=== PATIENT | female | born 1955 | race Caucasian/White ===

== ENCOUNTER → 2017-10-05 | Outpatient (CLI) | payer MEDICARE, OTHER ==
[~2017-10-05] MED LIST: LIDOCAINE 2%, 20ML ONE
== END ==
LOC: RAD 07:12
PROVIDERS: ATTEND Family Medicine
DX: J90 Pleural effusion, not elsewhere classified (principal); F32.89 Other specified depressive episodes; Z98.51 Tubal ligation status; Z98.890 Other specified postprocedural states
CPT/HCPCS: 32555; J3490

== ENCOUNTER 2017-10-16 18:13 | Inpatient (IN) | payer MEDICARE, OTHER ==
[~2017-10-16] VITALS: Ht 167.6 cm; Wt 84.6 kg
[2017-10-16] MEDS ORDERED: SODIUM CHLORIDE FLUSH 10ML SYR IVF ONE ×2 (19:00→19:30)
[2017-10-16] MEDS ORDERED: AMLO5TAB2 PO (19:19)
[2017-10-16] MEDS ORDERED: VILA20TA PO (19:19)
[2017-10-16] MEDS ORDERED: LOSA25TA5 PO (19:20)
[2017-10-16] MEDS ORDERED: HYDR-3237 PO (19:21)
[2017-10-16 19:30] LABS: BASOPHILS # (AUTO) 0.01 x10^3/uL (0-0.1); BASOPHILS % (AUTO) 0 % (0-1); EOSINOPHILS # (AUTO) 0.27 x10^3/uL (0-0.4); EOSINOPHILS % (AUTO) 4 % (1-7); LYMPHOCYTES # (AUTO) 0.68 x10^3/uL (1-3.4); LYMPHOCYTES % (AUTO) 10 % (22-44); MD NO; MEAN CORPUSCULAR HGB CONC 33.1 g/dL (32.4-35.8); MEAN CORPUSCULAR VOLUME 96.6 fL (80-100); MEAN PLATELET VOLUME 7.4 fL (7.4-10.4); MONOCYTES # (AUTO) 0.38 x10^3/uL (0.2-0.8); MONOCYTES % (AUTO) 6 % (2-9); NEUTROPHILS # (AUTO) 5.46 x10^3/uL (1.8-6.8); NEUTROPHILS % (AUTO) 80 % (42-75); PLATELET COUNT 313 x10^3/uL (130-400); RED BLOOD COUNT 4.01 x10^6/uL (3.82-5.3); RED CELL DISTRIBUTION WIDTH 13.4 % (9.6-15.2)
[2017-10-16 19:34] LABS: ALBUMIN 3.2 g/dL (3.4-5.0); ANION GAP 10 mmol/L (5-15); CALCIUM 9.9 mg/dL (8.5-10.1); CHLORIDE 108 mmol/L (98-107); CREATININE 1.43 mg/dL (0.55-1.02)
[2017-10-16 19:35] LABS: INTERNATIONAL NORMALIZED RATIO 0.97 (0.93-1.1)
[2017-10-16] MEDS ORDERED: LIDOCAINE 2%, 20ML ONE (19:49)
[2017-10-16] MEDS ORDERED: FENTANYL PF 100 MCG/2ML ONE (19:55)
[2017-10-16] MEDS ORDERED: HYDROcodone/APAP 5/325 TABLET ONE (21:09)
[2017-10-16] MEDS ORDERED: HYDROcodone/APAP 5/325 TABLET PO ONE (21:30)
[2017-10-16] MEDS: HEPARIN 5,000 UNITS/ML, 1ML SQ SCH (22:00)
[2017-10-16] MEDS ORDERED: ACETAMINOPHEN 325 MG TABLET PO PRN (22:00)
[2017-10-16] MEDS ORDERED: HYDROcodone/APAP 5/325 TABLET PO PRN ×2 (22:00→23:30)
[2017-10-16] MEDS ORDERED: ONDANSETRON 2MG/ML, 2ML IVPush PRN (22:00)
[2017-10-16] MEDS ORDERED: BISACODYL 10 MG SUPP PR PRN (22:00)
[2017-10-16] MEDS ORDERED: HYDROcodone/APAP 5/325 TABLET PO SCH (22:00)
[2017-10-16] MEDS ORDERED: POLYETHYLENE GLYCOL 17 GM PACKET PO PRN (22:00)
[2017-10-16 23:23] VITALS: BP 122/75
[2017-10-16] MEDS: SODIUM CHLORIDE FLUSH 10ML SYR IVF SCH (23:23)
[2017-10-17] MEDS: MORPHINE SULFATE 4 MG/ML, 1ML IVPush PRN ×4 (00:08→14:36)
[2017-10-17 02:24] VITALS: BP 125/82
[2017-10-17] MEDS: HEPARIN 5,000 UNITS/ML, 1ML SQ SCH ×3 (05:30→22:00)
[2017-10-17] MEDS: HYDROcodone/APAP 5/325 TABLET PO PRN ×3 (05:36→21:02)
[2017-10-17 06:12] LABS: BASOPHILS # (AUTO) 0.02 x10^3/uL (0-0.1); BASOPHILS % (AUTO) 0 % (0-1); EOSINOPHILS # (AUTO) 0.21 x10^3/uL (0-0.4); EOSINOPHILS % (AUTO) 3 % (1-7); LYMPHOCYTES # (AUTO) 0.61 x10^3/uL (1-3.4); LYMPHOCYTES % (AUTO) 10 % (22-44); MD NO; MEAN CORPUSCULAR HEMOGLOBIN 31.6 pg (27.0-34.8); MEAN CORPUSCULAR HGB CONC 32.6 g/dL (32.4-35.8); MEAN CORPUSCULAR VOLUME 96.8 fL (80-100); MEAN PLATELET VOLUME 7.1 fL (7.4-10.4); MONOCYTES # (AUTO) 0.43 x10^3/uL (0.2-0.8); MONOCYTES % (AUTO) 7 % (2-9); NEUTROPHILS # (AUTO) 4.92 x10^3/uL (1.8-6.8); NEUTROPHILS % (AUTO) 80 % (42-75); PLATELET COUNT 270 x10^3/uL (130-400); RED BLOOD COUNT 3.68 x10^6/uL (3.82-5.3); RED CELL DISTRIBUTION WIDTH 13.2 % (9.6-15.2)
[2017-10-17 06:25] LABS: ALBUMIN 2.7 g/dL (3.4-5.0); ANION GAP 7 mmol/L (5-15); CALCIUM 9.4 mg/dL (8.5-10.1); CHLORIDE 110 mmol/L (98-107)
[2017-10-17 06:28] LABS: ALANINE AMINOTRANSFERASE 13 U/L (12-78); ALKALINE PHOSPHATASE 59 U/L (45-117); BILIRUBIN,TOTAL 0.5 mg/dL (0.2-1.0); CREATININE 1.34 mg/dL (0.55-1.02); TOTAL PROTEIN 6.9 g/dL (6.4-8.2)
[2017-10-17 07:15] VITALS: BP 122/80
[2017-10-17] MEDS: LOSARTAN 25MG TABLET PO SCH (09:18)
[2017-10-17] MEDS: SODIUM CHLORIDE FLUSH 10ML SYR IVF SCH ×2 (09:18→21:03)
[2017-10-17] MEDS: SENNA/DOCUSATE TABLET PO SCH (09:19)
[2017-10-17] MEDS: AMLODIPINE 5 MG TABLET PO SCH (09:19)
[2017-10-17 13:34] VITALS: BP 111/70
[2017-10-17] MEDS ORDERED: LIDODERM 5% PATCH TD SCH (18:00)
[2017-10-17] MEDS ORDERED: PHARMACY MAY ADJ FOR RENAL FX MC PRN (18:00)
[2017-10-17] MEDS: GABAPENTIN 100 MG CAPSULE PO SCH ×2 (18:16→21:02)
[2017-10-17 19:14] VITALS: BP 98/67
[2017-10-18 01:54] VITALS: BP 112/73
[2017-10-18] MEDS: HEPARIN 5,000 UNITS/ML, 1ML SQ SCH (05:42)
[2017-10-18] MEDS: GABAPENTIN 100 MG CAPSULE PO SCH ×2 (05:57→11:37)
[2017-10-18 06:01] LABS: BASOPHILS # (AUTO) 0.03 x10^3/uL (0-0.1); BASOPHILS % (AUTO) 1 % (0-1); EOSINOPHILS # (AUTO) 0.23 x10^3/uL (0-0.4); EOSINOPHILS % (AUTO) 5 % (1-7); LYMPHOCYTES # (AUTO) 0.77 x10^3/uL (1-3.4); LYMPHOCYTES % (AUTO) 16 % (22-44); MD NO; MEAN CORPUSCULAR HEMOGLOBIN 31.6 pg (27.0-34.8); MEAN CORPUSCULAR HGB CONC 32.8 g/dL (32.4-35.8); MEAN CORPUSCULAR VOLUME 96.3 fL (80-100); MEAN PLATELET VOLUME 7.3 fL (7.4-10.4); MONOCYTES # (AUTO) 0.53 x10^3/uL (0.2-0.8); MONOCYTES % (AUTO) 11 % (2-9); NEUTROPHILS # (AUTO) 3.24 x10^3/uL (1.8-6.8); NEUTROPHILS % (AUTO) 68 % (42-75); PLATELET COUNT 262 x10^3/uL (130-400); RED BLOOD COUNT 3.73 x10^6/uL (3.82-5.3); RED CELL DISTRIBUTION WIDTH 13.5 % (9.6-15.2)
[2017-10-18 07:07] LABS: ANION GAP 10 mmol/L (5-15); CALCIUM 8.9 mg/dL (8.5-10.1); CHLORIDE 107 mmol/L (98-107)
[2017-10-18 07:19] VITALS: BP 116/73
[2017-10-18] MEDS: SODIUM CHLORIDE FLUSH 10ML SYR IVF SCH (08:58)
[2017-10-18] MEDS: SENNA/DOCUSATE TABLET PO SCH (08:58)
[2017-10-18] MEDS: LOSARTAN 25MG TABLET PO SCH (08:58)
[2017-10-18] MEDS: AMLODIPINE 5 MG TABLET PO SCH (08:58)
[2017-10-18] MEDS ORDERED: METHOCARBAMOL 500 MG TABLET PO PRN (10:00)
[2017-10-18 10:52] LABS: THYROID STIMULATING HORMONE 3.32 mIU/L (0.358-3.740)
[2017-10-18] MEDS ORDERED: GABA-826 PO (11:28)
[2017-10-18] MEDS ORDERED: MAGNESIUM OXIDE 400 MG TABLET PO SCH (12:00)
== END 2017-10-18 12:40 | disposition home or self-care (01) | DRG 186 ==
LOC: ED 21:32 → EDIP 21:40 → 4WST 22:19 → DCLOUNGE 10-18 12:25
PROVIDERS: ADMIT Internal Medicine; ATTEND Internal Medicine
PROC: 0W9B30Z Drainage of Left Pleural Cavity with Drainage Device, Percutaneous Approach (ICD-10-PCS; principal; 2017-10-16)
DX: J94.8 Other specified pleural conditions (principal); J96.01 Acute respiratory failure with hypoxia; N17.0 Acute kidney failure with tubular necrosis; E44.0 Moderate protein-calorie malnutrition; J98.11 Atelectasis; R18.8 Other ascites; J90 Pleural effusion, not elsewhere classified; I89.0 Lymphedema, not elsewhere classified; I49.3 Ventricular premature depolarization; Z88.0 Allergy status to penicillin; Z00.6 Encounter for examination for normal comparison and control in clinical research program; Z80.1 Family history of malignant neoplasm of trachea, bronchus and lung; Z82.49 Family history of ischemic heart disease and other diseases of the circulatory system; Z85.43 Personal history of malignant neoplasm of ovary; Z90.710 Acquired absence of both cervix and uterus; Z68.30 Body mass index [BMI] 30.0-30.9, adult; I12.9 Hypertensive chronic kidney disease with stage 1 through stage 4 chronic kidney disease, or unspecified chronic kidney disease; N18.9 Chronic kidney disease, unspecified
CPT/HCPCS: 32551; 32557; 36415; 71045; 80048; 80053; 82040; 83735; 84443; 85025; 85610; 85730; 93005; 99291; J3010; J3490; C1729; C1769

== ENCOUNTER → 2017-10-16 | Outpatient (CLI) | payer MEDICARE, OTHER ==
[~2017-10-16] MED LIST changes: +AMLO5TAB2 PO; +GABA-826 PO; +HYDR-3237 PO; -LIDOCAINE 2%, 20ML ONE; +LOSA25TA5 PO; +VILA20TA PO
== END | disposition home or self-care (01) ==
LOC: RAD 15:37
PROVIDERS: ATTEND Family Medicine
DX: J90 Pleural effusion, not elsewhere classified (principal); J94.8 Other specified pleural conditions
CPT/HCPCS: 71046

== ENCOUNTER → 2017-10-24 | Outpatient (CLI) | payer MEDICARE, OTHER ==
[~2017-10-24] MED LIST changes: +GABA300C10 PO; +TAMS-11 PO
== END | disposition home or self-care (01) ==
LOC: RAD 15:06
PROVIDERS: ATTEND Family Medicine
DX: J90 Pleural effusion, not elsewhere classified (principal); J98.11 Atelectasis; J93.12 Secondary spontaneous pneumothorax
CPT/HCPCS: 71046

== ENCOUNTER 2017-10-25 12:21 | Observation (INO) | payer MEDICARE, OTHER ==
[~2017-10-25] VITALS: Ht 167.6 cm; Wt 85.0 kg
[~2017-10-25 12:21] MED LIST changes: -GABA300C10 PO; -TAMS-11 PO
[2017-10-25] MEDS ORDERED: LACTATED RINGERS 1,000 ML IV SCH (12:56)
[2017-10-25] MEDS ORDERED: GABA300C10 PO (13:22)
[2017-10-25 14:00] VITALS: BP 112/75
[2017-10-25] MEDS ORDERED: MIDAZOLAM 1 MG/ML, 2ML ONE (14:02)
[2017-10-25 14:03] LABS: MICROSCOPIC NOT IND
[2017-10-25] MEDS ORDERED: FENTANYL PF 100 MCG/2ML ONE (14:03)
[2017-10-25] MEDS ORDERED: PROPOFOL 10 MG/ML, 20ML ONE (14:03)
[2017-10-25] MEDS ORDERED: CEFAZOLIN 1,000 MG ONE ×2 (14:06→14:10)
[2017-10-25 14:08] LABS: CULTURE INDICATED? NO
[2017-10-25] MEDS ORDERED: DEXAMETHASONE 4 MG/ML, 1ML ONE (14:09)
[2017-10-25] MEDS ORDERED: KETOROLAC 30 MG/1 ML ONE (14:10)
[2017-10-25] MEDS ORDERED: ONDANSETRON 2MG/ML, 2ML ONE (14:10)
[2017-10-25] MEDS ORDERED: ACETAMINOPHEN 325 MG TABLET PO PRN (14:30)
[2017-10-25] MEDS ORDERED: OXYcodone 5 MG/5 ML ORAL.SOL UDC PO PRN (14:30)
[2017-10-25] MEDS ORDERED: hydrALAzine 20 MG/ML, 1ML IV PRN (14:30)
[2017-10-25] MEDS ORDERED: FENTANYL PF 100 MCG/2ML IV PRN (14:30)
[2017-10-25] MEDS ORDERED: LABETALOL 5MG/ML, 20ML IV PRN (14:30)
[2017-10-25] MEDS ORDERED: PROMETHAZINE 12.5 MG SUPP PR PRN (14:30)
[2017-10-25] MEDS ORDERED: MEPERIDINE/PF 25MG/0.5ML IVPush PRN (14:30)
[2017-10-25] MEDS ORDERED: MORPHINE SULFATE 4 MG/ML, 1ML IVPush PRN (14:30)
[2017-10-25] MEDS ORDERED: ONDANSETRON ODT 8 MG PO PRN (14:30)
[2017-10-25] MEDS ORDERED: HYDROmorphone 1 MG/ML, 1ML IV PRN (14:30)
[2017-10-25] MEDS ORDERED: OMNIPAQUE 350 MG/ML, 50 ML BOTTLE IV ONE ×2 (14:33→16:10)
[2017-10-25 19:15] VITALS: BP 113/67
[2017-10-25] MEDS ORDERED: HYDROcodone/APAP 5/325 TABLET PO PRN (21:00)
[2017-10-25] MEDS ORDERED: TAMSULOSIN 0.4 MG CAP.ER.24H PO PRN (21:00)
[2017-10-25] MEDS: GABAPENTIN 300 MG CAPSULE PO SCH (21:20)
[2017-10-26 02:33] VITALS: BP 111/65
[2017-10-26 08:03] VITALS: BP 141/77
[2017-10-26] MEDS: GABAPENTIN 300 MG CAPSULE PO SCH (08:15)
[2017-10-26] MEDS ORDERED: VILAZODONE HYDROCHLORIDE 20 MG HOMEMEDPO SCH (09:00)
[2017-10-26] MEDS ORDERED: LOSARTAN 25MG TABLET PO SCH (09:00)
[2017-10-26] MEDS ORDERED: AMLODIPINE 5 MG TABLET PO SCH (09:00)
[2017-10-26] MEDS ORDERED: TAMS-11 PO (09:35)
== END 2017-10-26 09:45 | disposition home or self-care (01) ==
LOC: OUT 12:21 → 4NOR 19:01 → OUT 21:01 → DCLOUNGE 10-26 09:37
PROVIDERS: ADMIT Urology; ATTEND Urology
DX: N13.30 Unspecified hydronephrosis (principal); C56.9 Malignant neoplasm of unspecified ovary; F41.9 Anxiety disorder, unspecified; F32.9 Major depressive disorder, single episode, unspecified; G62.9 Polyneuropathy, unspecified
CPT/HCPCS: 52005; 74420; 81003; C1758; C1769; C2617; G0378; J0690; J1100; J1885; J2250; J2405; J2704; J3010; J7120; Q9967

== ENCOUNTER 2017-11-07 09:16 | Emergency (ER) | payer MEDICARE, OTHER ==
[~2017-11-07] VITALS: Ht 167.6 cm; Wt 82.9 kg
[~2017-11-07 09:16] MED LIST changes: +GABA300C10 PO; +TAMS-11 PO
[2017-11-07] MEDS ORDERED: LIDOCAINE-MPF 2% ,5ML ONE (11:23)
[2017-11-07 12:27] VITALS: BP 113/70
== END 2017-11-07 13:03 | disposition home or self-care (01) ==
LOC: ED 10:20
DX: J91.0 Malignant pleural effusion (principal); I10 Essential (primary) hypertension
CPT/HCPCS: 32555; 71045; 71046; 93005; 99285; J3490; 99284

== ENCOUNTER → 2017-11-09 | Outpatient (CLI) | payer MEDICARE, OTHER ==
[~2017-11-09] MED LIST changes: +LIDOCAINE-MPF 2% ,5ML ONE
== END | disposition home or self-care (01) ==
LOC: RAD 09:33
PROVIDERS: ATTEND Family Medicine
DX: R18.8 Other ascites (principal); J91.8 Pleural effusion in other conditions classified elsewhere
CPT/HCPCS: 32555; 49083; J3490

== ENCOUNTER → 2017-11-27 | Outpatient (CLI) | payer MEDICARE, OTHER ==
[~2017-11-27] MED LIST changes: +LIDOCAINE-MPF 1%, 2ML ONE; -LIDOCAINE-MPF 2% ,5ML ONE
== END | disposition home or self-care (01) ==
LOC: RAD 13:36
PROVIDERS: ATTEND Family Medicine
DX: J93.9 Pneumothorax, unspecified (principal); J90 Pleural effusion, not elsewhere classified; J94.0 Chylous effusion; R18.8 Other ascites
CPT/HCPCS: 32555; 49083; 71045; J3490

== ENCOUNTER → 2017-12-21 | Outpatient (CLI) | payer MEDICARE, OTHER ==
[~2017-12-21] MED LIST changes: -LIDOCAINE-MPF 1%, 2ML ONE; +LIDOCAINE-MPF 2%, 2ML ONE
== END | disposition home or self-care (01) ==
LOC: RAD 11:40
PROVIDERS: ATTEND Family Medicine
DX: R18.8 Other ascites (principal); J90 Pleural effusion, not elsewhere classified; R06.02 Shortness of breath; R10.9 Unspecified abdominal pain; R14.0 Abdominal distension (gaseous)
CPT/HCPCS: 32555; 49083; J3490

== ENCOUNTER 2018-04-14 12:46 | Emergency (ER) | payer MEDICARE, OTHER ==
[~2018-04-14 12:46] MED LIST changes: +AMLO-150 PO; -AMLO5TAB2 PO; -LIDOCAINE-MPF 2%, 2ML ONE; -LOSA25TA5 PO; +LOSA25TA6 PO
[2018-04-14] MEDS ORDERED: ONDA4TAB10 PO (13:36)
[2018-04-14] MEDS ORDERED: LORA-445 PO (13:36)
[2018-04-14] MEDS ORDERED: PROC5TAB40 PO (13:37)
[2018-04-14 13:52] LABS: ANION GAP 9 mmol/L (5-15); CALCIUM 9.1 mg/dL (8.5-10.1); CHLORIDE 107 mmol/L (98-107)
[2018-04-14 13:53] LABS: INTERNATIONAL NORMALIZED RATIO 0.97 (0.93-1.1); PROTHROMBIN TIME 10.3 Seconds (9.6-11.5)
[2018-04-14] MEDS ORDERED: LIDOCAINE 1%, 10ML ONE (14:20)
[2018-04-14 14:30] LABS: MD YES; MEAN CORPUSCULAR HEMOGLOBIN 31.7 pg (27.0-34.8); MEAN CORPUSCULAR HGB CONC 33.6 g/dL (32.4-35.8); MEAN CORPUSCULAR VOLUME 94.1 fL (80-100); MEAN PLATELET VOLUME 7.3 fL (7.4-10.4); PLATELET COUNT 377 x10^3/uL (130-400)
[2018-04-14 14:31] LABS: RED CELL DISTRIBUTION WIDTH 24.6 % (9.6-15.2)
[2018-04-14 15:03] LABS: BAND#(MANUAL) 16.59 x10^3/uL; BANDS%(MANUAL) 30 % (0-7); EOS#(MANUAL) 0.55 x10^3/uL (0.0-0.4); EOS% (MANUAL) 1 % (1-7); LYMPH#(MANUAL) 1.11 x10^3/uL (1-3.4); LYMPHS% (MANUAL) 2 % (22-44); MONOS#(MANUAL) 1.11 x10^3/uL (0.3-2.7); MONOS% (MANUAL) 2 % (2-9); SEG#(MANUAL) 33.18 x10^3/uL (1.8-6.8); SEGS% (MANUAL) 60 % (42-75)
[2018-04-14 15:04] LABS: METAMYELOCYTES# (MANUAL) 1.11 x10^3/uL (0-0); METAMYELOCYTES% (MANUAL) 2 % (0-1); MYELOCYTES# (MANUAL) 0.55 x10^3/uL (0-0); MYELOCYTES% (MANUAL) 1 % (0-0); PROGRANULOCYTES# (MANUAL) 1.11 x10^3/uL (0-0); PROGRANULOCYTES% (MANUAL) 2 % (0-0)
[2018-04-14 15:05] LABS: ANISOCYTOSIS 1+
[2018-04-14 15:06] LABS: <PLATELET ESTIMATE> ADEQUATE; <PLT MORPHOLOGY> NORMAL PLT MORPH; PMNS WITH VACUOLES 1+; TOXIC GRAN 1+
[2018-04-14 17:24] VITALS: BP 118/49
== END 2018-04-14 17:26 | disposition home or self-care (01) ==
LOC: ED 16:15
DX: R18.0 Malignant ascites (principal); D72.829 Elevated white blood cell count, unspecified; I12.9 Hypertensive chronic kidney disease with stage 1 through stage 4 chronic kidney disease, or unspecified chronic kidney disease; N18.9 Chronic kidney disease, unspecified
CPT/HCPCS: 36415; 49083; 80048; 85025; 85610; 85730; 88112; 88305; 99285; J3490; 99284

== ENCOUNTER 2018-05-06 12:03 | Emergency (ER) | payer MEDICARE, OTHER ==
[~2018-05-06] VITALS: Ht 167.6 cm; Wt 71.1 kg
[~2018-05-06 12:03] MED LIST changes: +LORA-445 PO; +ONDA4TAB10 PO; +PROC5TAB40 PO
[2018-05-06] MEDS ORDERED: SODIUM CHLORIDE FLUSH 10ML SYR IVF ONE (13:00)
[2018-05-06 13:23] LABS: ALANINE AMINOTRANSFERASE 13 U/L (12-78); ALBUMIN 2.3 g/dL (3.4-5.0); ANION GAP 8 mmol/L (5-15); CALCIUM 8.1 mg/dL (8.5-10.1); CHLORIDE 106 mmol/L (98-107)
[2018-05-06 13:26] LABS: ALKALINE PHOSPHATASE 149 U/L (45-117); BILIRUBIN,TOTAL 0.2 mg/dL (0.2-1.0); CREATININE 1.17 mg/dL (0.55-1.02); TOTAL PROTEIN 7.2 g/dL (6.4-8.2)
[2018-05-06 13:28] LABS: INTERNATIONAL NORMALIZED RATIO 0.97 (0.93-1.1); PROTHROMBIN TIME 10.3 Seconds (9.6-11.5)
[2018-05-06 13:44] LABS: MEAN CORPUSCULAR HEMOGLOBIN 31.6 pg (27.0-34.8); MEAN CORPUSCULAR HGB CONC 33.9 g/dL (32.4-35.8); MEAN CORPUSCULAR VOLUME 93.1 fL (80-100); MEAN PLATELET VOLUME 7.8 fL (7.4-10.4); RED BLOOD COUNT 2.79 x10^6/uL (3.82-5.3); RED CELL DISTRIBUTION WIDTH 21.1 % (9.6-15.2)
[2018-05-06 13:45] LABS: MD YES
[2018-05-06 13:48] LABS: BASOS#(MANUAL) 0.02 x10^3/uL (0-0.1); BASOS% (MANUAL) 1 % (0-1); EOS#(MANUAL) 0.18 x10^3/uL (0.0-0.4); EOS% (MANUAL) 8 % (1-7); LYMPH#(MANUAL) 0.31 x10^3/uL (1-3.4); LYMPHS% (MANUAL) 14 % (22-44); MONOS#(MANUAL) 0.09 x10^3/uL (0.3-2.7); MONOS% (MANUAL) 4 % (2-9); SEG#(MANUAL) 1.61 x10^3/uL (1.8-6.8); SEGS% (MANUAL) 73 % (42-75)
[2018-05-06 13:49] LABS: ANISOCYTOSIS 1+; HEMOGRAM NOTE RECHECKED; PLATELET COUNT 39 x10^3/uL (130-400)
[2018-05-06 13:51] LABS: <PLATELET ESTIMATE> DECREASED; <PLT MORPHOLOGY> NORMAL PLT MORPH
[2018-05-06 15:28] VITALS: BP 110/59
[2018-05-06 15:43] VITALS: BP 110/49
[2018-05-06 15:57] VITALS: BP 117/55
[2018-05-06 16:11] VITALS: BP 110/58
[2018-05-06] MEDS ORDERED: DIPHENHYDRAMINE 25 MG CAPSULE ONE (16:52)
[2018-05-06] MEDS ORDERED: DIPHENHYDRAMINE 25 MG CAPSULE PO ONE (17:00)
== END 2018-05-06 17:43 | disposition home or self-care (01) ==
LOC: ED 13:01
DX: D61.810 Antineoplastic chemotherapy induced pancytopenia (principal); C56.9 Malignant neoplasm of unspecified ovary; Z51.11 Encounter for antineoplastic chemotherapy; I10 Essential (primary) hypertension
CPT/HCPCS: 36415; 36430; 80053; 85025; 85610; 85730; 86850; 86900; 99285; P9037; Q0163

== ENCOUNTER → 2018-05-29 | Outpatient (CLI) | payer MEDICARE, OTHER ==
[~2018-05-29] MED LIST changes: +LIDOCAINE-MPF 1%, 5ML ONE; +LOSA25TA25 PO; -LOSA25TA6 PO
== END | disposition home or self-care (01) ==
LOC: RAD 11:34
PROVIDERS: ATTEND Family Medicine
DX: R18.0 Malignant ascites (principal)
CPT/HCPCS: 49083

== ENCOUNTER 2018-12-15 10:13 | Emergency (ER) | payer MEDICARE, OTHER ==
[~2018-12-15] VITALS: Ht 165.1 cm; Wt 63.0 kg
[~2018-12-15 10:13] MED LIST changes: -LIDOCAINE-MPF 1%, 5ML ONE
--- NOTE | 2018-12-15 10:30 | NUR ---
Pt has been having progressively worsening ABD swelling & SOB x several months. Has hx of ovarian CA with mets. Has required paracentesis & thoracentesis in the past. Last time 1 yr ago.
--- NOTE | 2018-12-15 11:02 | NUR ---
Provider in to see pt.
--- NOTE | 2018-12-15 11:20 | NUR ---
POC for paracentesis of ABD. Pt declined further workup for LLE swelling stating that it is from lymphedema & being followed by her PCP & that she'll think about CT chest to r/o PE . Remains on 2 liters via NC for comfort- able to ambulate to restroom w/out supplemental O2.
--- NOTE | 2018-12-15 12:07 | NUR ---
US called x 2 regarding delay of paracentesis. No answer in that dept, will continue to f/u, pt updated.
--- NOTE | 2018-12-15 12:12 | NUR ---
Received call back from US: Radiologist is in procedure now & pt will go approx 45 min. Pt & sig. other updated. No needs at this time.
[2018-12-15] MEDS ORDERED: LIDOCAINE-MPF 1%, 5ML ONE ×2 (13:01→15:12)
--- NOTE | 2018-12-15 13:13 | NUR ---
BREAK RN: PT IN RADIOLOGY AT THIS TIME.
--- NOTE | 2018-12-15 13:55 | NUR ---
Back from US. Paracentesis complete. 1550cc fluid drained. Pt states dyspnea gone & wants to go home. BP WNL SPO2 90-92% RA.
--- NOTE | 2018-12-15 15:30 | NUR ---
TO US for thoracentesis.
[2018-12-15 16:00] VITALS: BP 120/81
--- NOTE | 2018-12-15 16:22 | NUR ---
600cc removed from thoracentesis. Pt states breathing is even more improved than with paracentesis. RA Sat trial 90%. Repositioned into chair by side of bed. Info. relayed to Dr. Johnson.
--- NOTE | 2018-12-15 17:03 | NUR ---
[facility] Spoke w /ER , is working on it. Pt updated.
--- NOTE | 2018-12-15 17:18 | NUR ---
Pt d/c home. Verb understanding of d/c instructions.
== END 2018-12-15 17:26 | disposition home or self-care (01) ==
LOC: ED 11:38
DX: R18.8 Other ascites (principal); R09.02 Hypoxemia; R10.84 Generalized abdominal pain; R06.02 Shortness of breath; I10 Essential (primary) hypertension; Z90.710 Acquired absence of both cervix and uterus
CPT/HCPCS: 32555; 49083; 71045; 99285

== ENCOUNTER 2019-03-16 11:29 | Inpatient (IN) | payer MEDICARE, OTHER ==
[~2019-03-16] VITALS: Ht 165.1 cm; Wt 70.5 kg
[2019-03-16] MEDS ORDERED: SODIUM CHLORIDE FLUSH 10ML SYR IVF ONE (12:00)
--- NOTE | 2019-03-16 12:10 | NUR ---
THIS IS A 63YO F THAT COMES IN FOR SOB, BLEEDING GUMS THIS AM AND WEAKNESS. PT HAS METASTIC OVARIAN CA AND IS BEING TREATED WITH CHEMO. PT REPORTS SHE GOT A NEW CHEMO DRUG 1 WEEK AGO AND IS TAKING XERALTO AFTER A RECENT PE. PT STATES SHE ALSO GOT A TRANSFUSION 1 WK AGO WITH HER CHEMO AND THINKS THAT SHE NEEDS ANOTHER TRANSFUSION. SHE STATES NORMALLY SHE NEEDS TRANSFUSIONS ABOUT ONCE A MONTH AND SHE FEELS THE SAME SHE DID BEFORE HER OTHER TRANSFUSIONS. PT SITTING ON EDGE OF [facility] FOR COMFORT (STATES SHE HAS BED SORES. BLANCHABLE REDNESS NOTED.) CALL LIGHT WITHIN REACH AT BEDSIDE. PT CONNECTED TO ALL MONITORING. VSS
--- NOTE | 2019-03-16 12:17 | NUR ---
LAB AT BEDSIDE FOR BLOOD WORK, RADIOLOGY AT BEDSIDE
--- NOTE | 2019-03-16 12:30 | NUR ---
PT EDUCATED ON NEED FOR IV. PT INSISTING ON PORT ACCESS. MD TO BE UPDATED.
[2019-03-16 12:33] LABS: BASOPHILS % (AUTO) 0 % (0-1); EOSINOPHILS # (AUTO) 0.04 x10^3/uL (0-0.4); EOSINOPHILS % (AUTO) 0 % (1-7); LYMPHOCYTES # (AUTO) 0.33 x10^3/uL (1-3.4); LYMPHOCYTES % (AUTO) 3 % (22-44); MD NO; MEAN CORPUSCULAR HEMOGLOBIN 27.9 pg (27.0-34.8); MEAN CORPUSCULAR HGB CONC 31.4 g/dL (32.4-35.8); MEAN PLATELET VOLUME 7.4 fL (7.4-10.4); MONOCYTES # (AUTO) 0.86 x10^3/uL (0.2-0.8); MONOCYTES % (AUTO) 8 % (2-9); NEUTROPHILS # (AUTO) 10.27 x10^3/uL (1.8-6.8); NEUTROPHILS % (AUTO) 89 % (42-75); PLATELET COUNT 286 x10^3/uL (130-400); RED BLOOD COUNT 3.33 x10^6/uL (3.82-5.3); RED CELL DISTRIBUTION WIDTH 17.4 % (9.6-15.2)
[2019-03-16 12:36] LABS: ALANINE AMINOTRANSFERASE 25 U/L (12-78); ALBUMIN 1.5 g/dL (3.4-5.0); ANION GAP 7 mmol/L (5-15); CALCIUM 8.8 mg/dL (8.5-10.1); CHLORIDE 102 mmol/L (98-107)
[2019-03-16 12:40] LABS: ALKALINE PHOSPHATASE 441 U/L (45-117); BILIRUBIN,TOTAL 0.3 mg/dL (0.2-1.0); TOTAL PROTEIN 7.4 g/dL (6.4-8.2); TROPONIN I < 0.015 ng/mL (0.000-0.045)
--- NOTE | 2019-03-16 12:51 | NUR ---
AT BEDSIDE TO DISCUSS POC.
[2019-03-16 13:00] LABS: D-DIMER 1.95 ug/mlFEU (0.00-0.52); INTERNATIONAL NORMALIZED RATIO 1.17 (0.93-1.1); PROTHROMBIN TIME 12.2 Seconds (9.6-11.5)
[2019-03-16] MEDS ORDERED: AZITHROMYCIN 500 MG in SODIUM CHLORIDE 0.9% 250 ML IV ONE (13:30)
[2019-03-16] MEDS ORDERED: CEFTRIAXONE PMX 1GM/50ML 50 ML IV ONE (13:30)
--- NOTE | 2019-03-16 13:39 | NUR ---
HOSPITALIST AT BEDSIDE TO ADMIT PT. IV STARTED 2ND SET OF BLOOD CULTURES DRAWN. PT RESTING ON NNEKA CALDERON
[2019-03-16] MEDS ORDERED: ACETAMINOPHEN 325 MG TABLET ONE (13:45)
[2019-03-16] MEDS: ACETAMINOPHEN 325 MG TABLET PO PRN (13:49)
[2019-03-16] MEDS ORDERED: RIVA20TA PO (13:54)
[2019-03-16] MEDS ORDERED: [UNRECOGNIZED DRUG - OTHER] IV (13:54)
[2019-03-16] MEDS ORDERED: LORazepam 0.5MG TABLET PO SCH (14:00)
[2019-03-16] MEDS ORDERED: LIDOCAINE 1%, 10ML ONE (14:02)
--- NOTE | 2019-03-16 14:32 | NUR ---
PT TAKEN TO IR. SPOKE TO IR NURSE, STATES WILL TAKE PT UP TO FLOOR ONCE THOROCENTESIS IS COMPLETE. CALL BELONGINGS COLLECTED FROM ROOM AND TAKEN OVER TO PT.
[2019-03-16 14:46] LABS: SEDIMENTATION RATE > 120 mm/hr (0-20)
[2019-03-16 14:47] LABS: HCT (SEDRATE) 29.6 % (34.6-47.8)
[2019-03-16 14:51] VITALS: BP 105/65
[2019-03-16] MEDS: HYDROcodone/APAP 5/325 TABLET PO SCH ×2 (16:47→22:50)
[2019-03-16] MEDS: AZITHROMYCIN 500 MG TABLET PO SCH (17:16)
[2019-03-16] MEDS: CEFTRIAXONE PMX 2GM/50ML 50 ML IV SCH (17:16)
[2019-03-16] MEDS: SODIUM CHLORIDE 0.9% 1,000 ML IV SCH (17:16)
[2019-03-16 20:09] VITALS: BP 109/70
[2019-03-16] MEDS: LORazepam 0.5MG TABLET PO PRN (22:49)
[2019-03-16] MEDS: ENOXAPARIN 40 MG/0.4 ML SQ SCH (22:50)
[2019-03-17 02:29] VITALS: BP 104/63
[2019-03-17] MEDS: ACETAMINOPHEN 325 MG TABLET PO PRN ×3 (02:44→18:52)
[2019-03-17 05:24] LABS: ALANINE AMINOTRANSFERASE 29 U/L (12-78); ALBUMIN 1.2 g/dL (3.4-5.0); ANION GAP 6 mmol/L (5-15); CALCIUM 8.2 mg/dL (8.5-10.1); CHLORIDE 104 mmol/L (98-107)
[2019-03-17 05:27] LABS: ALKALINE PHOSPHATASE 372 U/L (45-117); BILIRUBIN,TOTAL 0.2 mg/dL (0.2-1.0); CREATININE 0.63 mg/dL (0.55-1.02); TOTAL PROTEIN 6.2 g/dL (6.4-8.2)
[2019-03-17 05:28] LABS: BASOPHILS % (AUTO) 0 % (0-1); EOSINOPHILS # (AUTO) 0.04 x10^3/uL (0-0.4); EOSINOPHILS % (AUTO) 0 % (1-7); LYMPHOCYTES # (AUTO) 0.29 x10^3/uL (1-3.4); LYMPHOCYTES % (AUTO) 3 % (22-44); MD NO; MEAN CORPUSCULAR HEMOGLOBIN 27.8 pg (27.0-34.8); MEAN CORPUSCULAR HGB CONC 31.4 g/dL (32.4-35.8); MEAN CORPUSCULAR VOLUME 88.6 fL (80-100); MEAN PLATELET VOLUME 7.2 fL (7.4-10.4); MONOCYTES # (AUTO) 0.92 x10^3/uL (0.2-0.8); MONOCYTES % (AUTO) 10 % (2-9); NEUTROPHILS # (AUTO) 8.28 x10^3/uL (1.8-6.8); NEUTROPHILS % (AUTO) 87 % (42-75); PLATELET COUNT 222 x10^3/uL (130-400); RED BLOOD COUNT 2.72 x10^6/uL (3.82-5.3); RED CELL DISTRIBUTION WIDTH 17.1 % (9.6-15.2)
[2019-03-17] MEDS: HYDROcodone/APAP 5/325 TABLET PO SCH ×4 (05:47→21:47)
[2019-03-17] MEDS: DOCUSATE 100 MG CAPSULE PO PRN (05:47)
[2019-03-17 06:53] VITALS: BP 99/67
[2019-03-17] MEDS ORDERED: AZITHROMYCIN 500 MG TABLET PO SCH (09:00)
[2019-03-17] MEDS: SODIUM CHLORIDE 0.9% 1,000 ML IV SCH (12:27)
[2019-03-17 12:36] VITALS: BP 102/67
[2019-03-17] MEDS ORDERED: CEFTRIAXONE PMX 2GM/50ML 50 ML IV SCH (14:00)
[2019-03-17] MEDS: CEFTRIAXONE PMX 2GM/50ML 50 ML IV SCH (16:40)
[2019-03-17] MEDS: AZITHROMYCIN 500 MG TABLET PO SCH (16:45)
[2019-03-17 19:18] VITALS: BP 109/67
[2019-03-17] MEDS: LORazepam 0.5MG TABLET PO PRN (21:48)
[2019-03-17] MEDS: ENOXAPARIN 40 MG/0.4 ML SQ SCH (22:00)
[2019-03-18] MEDS: ACETAMINOPHEN 325 MG TABLET PO PRN ×2 (00:03→04:49)
[2019-03-18 01:59] VITALS: BP 92/52
[2019-03-18] MEDS: SODIUM CHLORIDE 0.9% 1,000 ML IV SCH ×2 (04:53→20:57)
[2019-03-18] MEDS: HYDROcodone/APAP 5/325 TABLET PO SCH ×2 (06:00→10:11)
[2019-03-18 06:51] VITALS: BP 118/72
[2019-03-18 07:36] LABS: ANION GAP 6 mmol/L (5-15); CALCIUM 8.3 mg/dL (8.5-10.1); CHLORIDE 105 mmol/L (98-107); CREATININE 0.63 mg/dL (0.55-1.02)
[2019-03-18 07:49] LABS: MEAN CORPUSCULAR HEMOGLOBIN 27.4 pg (27.0-34.8); MEAN CORPUSCULAR HGB CONC 31.1 g/dL (32.4-35.8); MEAN CORPUSCULAR VOLUME 88.2 fL (80-100); MEAN PLATELET VOLUME 7.1 fL (7.4-10.4); PLATELET COUNT 335 x10^3/uL (130-400); RED BLOOD COUNT 3.06 x10^6/uL (3.82-5.3)
[2019-03-18 07:50] LABS: RED CELL DISTRIBUTION WIDTH 17.8 % (9.6-15.2)
[2019-03-18 08:13] LABS: MD YES
[2019-03-18 08:14] LABS: BAND#(MANUAL) 0.13 x10^3/uL; BANDS%(MANUAL) 1 % (0-7); METAMYELOCYTES# (MANUAL) 0.13 x10^3/uL (0-0); METAMYELOCYTES% (MANUAL) 1 % (0-1); MONOS#(MANUAL) 0.38 x10^3/uL (0.3-2.7); MONOS% (MANUAL) 3 % (2-9); SEG#(MANUAL) 11.97 x10^3/uL (1.8-6.8); SEGS% (MANUAL) 95 % (42-75)
[2019-03-18 08:15] LABS: ANISOCYTOSIS 1+; POLYCHROMASIA 1+
[2019-03-18 08:16] LABS: <PLATELET ESTIMATE> ADEQUATE; <PLT MORPHOLOGY> NORMAL PLT MORPH; OVALOCYTES 1+; TEAR DROPS 1+
[2019-03-18] MEDS ORDERED: FUROSEMIDE 20 MG/2 ML IV ONE (09:00)
[2019-03-18] MEDS ORDERED: ALBUTEROL SULFATE 2.5 MG/3 ML NPPB PRN (12:00)
[2019-03-18] MEDS ORDERED: RIVAROXABAN 20 MG TABLET PO SCH (12:00)
[2019-03-18] MEDS ORDERED: OMNIPAQUE 350 MG/ML, 100ML BOTTLE ONE (12:38)
[2019-03-18 13:03] VITALS: BP 104/63
[2019-03-18] MEDS: HYDROcodone/APAP 5/325 TABLET PO PRN ×2 (14:10→19:29)
[2019-03-18] MEDS: CEFTRIAXONE PMX 2GM/50ML 50 ML IV SCH (17:22)
[2019-03-18] MEDS: AZITHROMYCIN 500 MG TABLET PO SCH (17:22)
[2019-03-18 19:36] VITALS: BP 117/72
[2019-03-18] MEDS: LORazepam 0.5MG TABLET PO PRN (22:51)
[2019-03-19 03:54] VITALS: BP 121/70
[2019-03-19 04:59] LABS: BASOPHILS % (AUTO) 0 % (0-1); EOSINOPHILS # (AUTO) 0.07 x10^3/uL (0-0.4); EOSINOPHILS % (AUTO) 1 % (1-7); LYMPHOCYTES # (AUTO) 0.39 x10^3/uL (1-3.4); LYMPHOCYTES % (AUTO) 3 % (22-44); MD NO; MEAN CORPUSCULAR HEMOGLOBIN 27.3 pg (27.0-34.8); MEAN CORPUSCULAR HGB CONC 30.9 g/dL (32.4-35.8); MEAN CORPUSCULAR VOLUME 88.3 fL (80-100); MEAN PLATELET VOLUME 6.8 fL (7.4-10.4); MONOCYTES # (AUTO) 1.01 x10^3/uL (0.2-0.8); MONOCYTES % (AUTO) 8 % (2-9); NEUTROPHILS # (AUTO) 11.26 x10^3/uL (1.8-6.8); NEUTROPHILS % (AUTO) 89 % (42-75); PLATELET COUNT 362 x10^3/uL (130-400); RED BLOOD COUNT 2.81 x10^6/uL (3.82-5.3); RED CELL DISTRIBUTION WIDTH 18.4 % (9.6-15.2)
[2019-03-19] MEDS: HYDROcodone/APAP 5/325 TABLET PO PRN ×4 (05:02→23:56)
[2019-03-19 05:09] LABS: ANION GAP 8 mmol/L (5-15); CHLORIDE 114 mmol/L (98-107); CREATININE 0.35 mg/dL (0.55-1.02)
[2019-03-19 05:19] LABS: CALCIUM 6.1 mg/dL (8.5-10.1)
[2019-03-19] MEDS ORDERED: POTASSIUM CHLORIDE 10 MEQ TABLET.ER PO ONE (07:00)
[2019-03-19 07:38] VITALS: BP 111/72
[2019-03-19] MEDS ORDERED: MORPHINE SULFATE 4 MG/ML, 1ML IVPush PRN (10:30)
[2019-03-19] MEDS ORDERED: MAGNESIUM SULFATE PMX 2GM/50ML 50 ML IV ONE (10:30)
[2019-03-19] MEDS: SODIUM CHLORIDE 0.9% 1,000 ML IV SCH (11:11)
[2019-03-19] MEDS ORDERED: ONDANSETRON 2MG/ML, 2ML ONE (11:27)
[2019-03-19] MEDS ORDERED: ONDANSETRON 2MG/ML, 2ML IVPush PRN (11:30)
[2019-03-19 12:46] VITALS: BP 119/65
[2019-03-19] MEDS ORDERED: LIDOCAINE 1%, 20ML ONE (13:08)
[2019-03-19] MEDS ORDERED: FLUMAZENIL 0.1 MG/1 ML, 5ML ONE (13:18)
[2019-03-19] MEDS ORDERED: MIDAZOLAM 1 MG/ML, 5ML ONE (13:18)
[2019-03-19] MEDS ORDERED: NALOXONE 1 MG/ML, 2ML ONE (13:18)
[2019-03-19] MEDS ORDERED: FENTANYL PF 100 MCG/2ML ONE (13:18)
[2019-03-19] MEDS: AZITHROMYCIN 500 MG TABLET PO SCH (16:47)
[2019-03-19] MEDS: CEFTRIAXONE PMX 2GM/50ML 50 ML IV SCH (16:47)
[2019-03-19 20:24] VITALS: BP 100/64
[2019-03-19] MEDS: LORazepam 0.5MG TABLET PO PRN (23:56)
[2019-03-20 00:03] VITALS: BP 105/60
[2019-03-20] MEDS: ACETAMINOPHEN 325 MG TABLET PO PRN (02:20)
[2019-03-20 04:00] VITALS: BP 101/62
[2019-03-20] MEDS: SODIUM CHLORIDE 0.9% 1,000 ML IV SCH (04:04)
[2019-03-20] MEDS: HYDROcodone/APAP 5/325 TABLET PO PRN (04:04)
[2019-03-20 06:06] LABS: BASOPHILS # (AUTO) 0.02 x10^3/uL (0-0.1); BASOPHILS % (AUTO) 0 % (0-1); EOSINOPHILS # (AUTO) 0.22 x10^3/uL (0-0.4); EOSINOPHILS % (AUTO) 2 % (1-7); LYMPHOCYTES # (AUTO) 0.34 x10^3/uL (1-3.4); LYMPHOCYTES % (AUTO) 3 % (22-44); MD NO; MEAN CORPUSCULAR HEMOGLOBIN 28.2 pg (27.0-34.8); MEAN CORPUSCULAR HGB CONC 31.2 g/dL (32.4-35.8); MEAN CORPUSCULAR VOLUME 90.4 fL (80-100); MEAN PLATELET VOLUME 7.2 fL (7.4-10.4); MONOCYTES # (AUTO) 1.11 x10^3/uL (0.2-0.8); MONOCYTES % (AUTO) 9 % (2-9); NEUTROPHILS # (AUTO) 10.27 x10^3/uL (1.8-6.8); NEUTROPHILS % (AUTO) 86 % (42-75); PLATELET COUNT 416 x10^3/uL (130-400); RED BLOOD COUNT 2.72 x10^6/uL (3.82-5.3); RED CELL DISTRIBUTION WIDTH 18.9 % (9.6-15.2)
[2019-03-20 06:14] LABS: ANION GAP 4 mmol/L (5-15); CALCIUM 8.1 mg/dL (8.5-10.1); CHLORIDE 105 mmol/L (98-107)
[2019-03-20 06:15] LABS: CREATININE 0.73 mg/dL (0.55-1.02)
[2019-03-20 06:45] VITALS: BP 113/72
[2019-03-20] MEDS ORDERED: BUPIVACAINE/PF 0.5% ONE (07:07)
[2019-03-20] MEDS ORDERED: EPINEPHRINE 1 MG/ML, 1ML ONE (07:07)
[2019-03-20] MEDS ORDERED: FENTANYL PF 250 MCG/5ML ONE (07:14)
[2019-03-20] MEDS ORDERED: MIDAZOLAM 1 MG/ML, 2ML ONE (07:14)
[2019-03-20] MEDS ORDERED: PROPOFOL 50 ML ONE (07:14)
[2019-03-20] MEDS ORDERED: ROCURONIUM 10MG/ML,5ML ONE (07:41)
[2019-03-20] MEDS ORDERED: SUCCINYLCHOLINE 20 MG/ML, 10ML ONE (07:41)
[2019-03-20] MEDS ORDERED: ONDANSETRON 2MG/ML, 2ML ONE (07:41)
[2019-03-20] MEDS ORDERED: DEXAMETHASONE 4 MG/ML, 1ML ONE (07:41)
[2019-03-20] MEDS ORDERED: ALBUTEROL/IPRATROPIUM 2.5MG/0.5MG, 3 ML NPPB PRN (09:00)
[2019-03-20] MEDS ORDERED: HYDROmorphone 2 MG/ML, 1ML IVPush PRN (09:00)
[2019-03-20] MEDS ORDERED: OXYcodone 5 MG/5 ML ORAL.SOL UDC PO PRN (09:00)
[2019-03-20] MEDS ORDERED: PROMETHAZINE 25 MG/ML, 1ML IV PRN (09:00)
[2019-03-20] MEDS ORDERED: EPHEDRINE 50 MG/ML, 1ML IM PRN (09:00)
[2019-03-20] MEDS ORDERED: ONDANSETRON 2MG/ML, 2ML IV PRN ×2 (09:00→11:30)
[2019-03-20] MEDS ORDERED: DIPHENHYDRAMINE 50 MG/ML, 1ML IVPush PRN ×2 (09:00→11:30)
[2019-03-20] MEDS ORDERED: MIDAZOLAM 1 MG/ML, 2ML IV PRN (09:00)
[2019-03-20] MEDS ORDERED: ONDANSETRON ODT 8 MG PO PRN (09:00)
[2019-03-20] MEDS ORDERED: EPHEDRINE 50 MG/ML, 1ML IVPush PRN (09:00)
[2019-03-20] MEDS ORDERED: FENTANYL PF 100 MCG/2ML IV PRN (09:00)
[2019-03-20 10:45] VITALS: BP 93/51
[2019-03-20 11:15] VITALS: BP 107/60
[2019-03-20] MEDS ORDERED: hydrALAzine 20 MG/ML, 1ML IV PRN (11:30)
[2019-03-20] MEDS ORDERED: DIPHENHYDRAMINE 25 MG CAPSULE PO PRN (11:30)
[2019-03-20] MEDS ORDERED: ACETAMINOPHEN 650 MG SUPP PR PRN (11:30)
[2019-03-20] MEDS ORDERED: POTASSIUM CHLORIDE 20 MEQ in D5%-0.45% NACL 1,000 ML IV SCH (11:30)
[2019-03-20] MEDS ORDERED: ENALAPRILAT 1.25 MG/ML, 2ML IV PRN (11:30)
[2019-03-20] MEDS ORDERED: morphine SULFATE 10 MG/ML, 1ML IV PRN (11:30)
[2019-03-20 12:15] VITALS: BP 96/58
[2019-03-20] MEDS: ENOXAPARIN 40 MG/0.4 ML SQ SCH ×2 (16:36→17:38)
[2019-03-20] MEDS: CEFTRIAXONE PMX 2GM/50ML 50 ML IV SCH (16:48)
[2019-03-20] MEDS: AZITHROMYCIN 500 MG TABLET PO SCH (17:38)
[2019-03-20] MEDS: SODIUM CHLORIDE FLUSH 10ML SYR IVF SCH (20:15)
[2019-03-20] MEDS: CALCIUM CARBONATE 500 MG TAB.CHEW PO PRN (22:06)
[2019-03-21] MEDS: ACETAMINOPHEN 325 MG TABLET PO PRN ×3 (00:03→10:50)
[2019-03-21] MEDS: HYDROcodone/APAP 5/325 TABLET PO PRN ×2 (04:13→08:30)
[2019-03-21 04:37] LABS: ANION GAP 3 mmol/L (5-15); CALCIUM 7.9 mg/dL (8.5-10.1); CHLORIDE 105 mmol/L (98-107)
[2019-03-21 04:41] LABS: ALANINE AMINOTRANSFERASE 14 U/L (12-78); ALKALINE PHOSPHATASE 160 U/L (45-117); BILIRUBIN,TOTAL 0.2 mg/dL (0.2-1.0); CREATININE 0.65 mg/dL (0.55-1.02); TOTAL PROTEIN 5.6 g/dL (6.4-8.2)
[2019-03-21 04:52] LABS: MEAN CORPUSCULAR HEMOGLOBIN 28.5 pg (27.0-34.8); MEAN CORPUSCULAR HGB CONC 31.6 g/dL (32.4-35.8); MEAN CORPUSCULAR VOLUME 90.3 fL (80-100); MEAN PLATELET VOLUME 7.4 fL (7.4-10.4); PLATELET COUNT 420 x10^3/uL (130-400); RED BLOOD COUNT 3.05 x10^6/uL (3.82-5.3); RED CELL DISTRIBUTION WIDTH 16.9 % (9.6-15.2)
[2019-03-21 05:00] VITALS: BP 98/55
[2019-03-21 05:45] LABS: BASOPHILS # (AUTO) 0.01 x10^3/uL (0-0.1); BASOPHILS % (AUTO) 0 % (0-1); EOSINOPHILS # (AUTO) 0.11 x10^3/uL (0-0.4); EOSINOPHILS % (AUTO) 1 % (1-7); LYMPHOCYTES # (AUTO) 0.32 x10^3/uL (1-3.4); LYMPHOCYTES % (AUTO) 2 % (22-44); MD SCAN; MONOCYTES # (AUTO) 0.63 x10^3/uL (0.2-0.8); MONOCYTES % (AUTO) 3 % (2-9); NEUTROPHILS # (AUTO) 17.27 x10^3/uL (1.8-6.8); NEUTROPHILS % (AUTO) 94 % (42-75)
[2019-03-21] MEDS: CALCIUM CARBONATE 500 MG TAB.CHEW PO PRN ×5 (06:08→19:47)
[2019-03-21] MEDS: MEROPENEM 1 GM in SODIUM CHLORIDE 0.9% 100 ML IV SCH ×2 (08:31→16:02)
[2019-03-21] MEDS: SODIUM CHLORIDE FLUSH 10ML SYR IVF SCH ×2 (09:00→20:38)
[2019-03-21] MEDS: OXYcodone IR 5MG TABLET PO PRN ×3 (12:39→20:37)
[2019-03-21] MEDS: GABAPENTIN 100 MG CAPSULE PO SCH ×3 (12:39→20:37)
[2019-03-21] MEDS: LIDODERM 5% PATCH TD PRN (15:55)
[2019-03-21] MEDS: ENOXAPARIN 40 MG/0.4 ML SQ SCH (16:02)
[2019-03-22] MEDS: ACETAMINOPHEN 325 MG TABLET PO PRN ×4 (00:10→19:59)
[2019-03-22] MEDS: MEROPENEM 1 GM in SODIUM CHLORIDE 0.9% 100 ML IV SCH ×3 (00:10→16:30)
[2019-03-22] MEDS: OXYcodone IR 5MG TABLET PO PRN ×6 (00:52→21:20)
[2019-03-22 04:00] VITALS: BP 98/48
[2019-03-22 04:30] LABS: MEAN CORPUSCULAR HEMOGLOBIN 28.5 pg (27.0-34.8); MEAN CORPUSCULAR HGB CONC 31.2 g/dL (32.4-35.8); MEAN CORPUSCULAR VOLUME 91.4 fL (80-100); MEAN PLATELET VOLUME 6.8 fL (7.4-10.4); PLATELET COUNT 527 x10^3/uL (130-400); RED BLOOD COUNT 2.81 x10^6/uL (3.82-5.3); RED CELL DISTRIBUTION WIDTH 17.6 % (9.6-15.2)
[2019-03-22 04:43] LABS: ANION GAP 4 mmol/L (5-15); CHLORIDE 106 mmol/L (98-107)
[2019-03-22 04:46] LABS: CREATININE 0.57 mg/dL (0.55-1.02)
[2019-03-22 05:01] LABS: MD YES
[2019-03-22 05:06] LABS: ANISOCYTOSIS 1+; BAND#(MANUAL) 0.44 x10^3/uL; BANDS%(MANUAL) 3 % (0-7); LYMPH#(MANUAL) 0.15 x10^3/uL (1-3.4); LYMPHS% (MANUAL) 1 % (22-44); METAMYELOCYTES# (MANUAL) 0.44 x10^3/uL (0-0); METAMYELOCYTES% (MANUAL) 3 % (0-1); MONOS#(MANUAL) 0.73 x10^3/uL (0.3-2.7); MONOS% (MANUAL) 5 % (2-9); MYELOCYTES# (MANUAL) 0.15 x10^3/uL (0-0); MYELOCYTES% (MANUAL) 1 % (0-0); SEG#(MANUAL) 12.62 x10^3/uL (1.8-6.8); SEGS% (MANUAL) 87 % (42-75)
[2019-03-22 05:08] LABS: <PLATELET ESTIMATE> INCREASED; <PLT MORPHOLOGY> NORMAL PLT MORPH; POLYCHROMASIA 1+
[2019-03-22 06:22] VITALS: BP 94/58
[2019-03-22] MEDS: GABAPENTIN 100 MG CAPSULE PO SCH ×3 (08:43→21:19)
[2019-03-22] MEDS: SODIUM CHLORIDE FLUSH 10ML SYR IVF SCH ×2 (08:43→21:20)
[2019-03-22] MEDS: CALCIUM CARBONATE 500 MG TAB.CHEW PO PRN ×4 (11:27→20:13)
[2019-03-22] MEDS: LIDODERM 5% PATCH TD PRN (12:22)
[2019-03-22] MEDS: ENOXAPARIN 40 MG/0.4 ML SQ SCH (16:30)
[2019-03-23] MEDS: MEROPENEM 1 GM in SODIUM CHLORIDE 0.9% 100 ML IV SCH ×2 (00:06→08:08)
[2019-03-23] MEDS: ACETAMINOPHEN 325 MG TABLET PO PRN ×3 (00:07→13:44)
[2019-03-23] MEDS: OXYcodone IR 5MG TABLET PO PRN ×7 (01:55→23:50)
[2019-03-23 04:00] VITALS: BP 107/57
[2019-03-23 04:38] LABS: MEAN CORPUSCULAR HEMOGLOBIN 28.5 pg (27.0-34.8); MEAN CORPUSCULAR HGB CONC 31.1 g/dL (32.4-35.8); MEAN CORPUSCULAR VOLUME 91.5 fL (80-100); MEAN PLATELET VOLUME 6.7 fL (7.4-10.4); PLATELET COUNT 582 x10^3/uL (130-400); RED BLOOD COUNT 2.78 x10^6/uL (3.82-5.3); RED CELL DISTRIBUTION WIDTH 18.3 % (9.6-15.2)
[2019-03-23 04:50] LABS: ANION GAP 2 mmol/L (5-15); CALCIUM 8.3 mg/dL (8.5-10.1); CHLORIDE 106 mmol/L (98-107); CREATININE 0.62 mg/dL (0.55-1.02)
[2019-03-23 04:52] LABS: MD YES
[2019-03-23 04:57] LABS: <PLATELET ESTIMATE> INCREASED; <PLT MORPHOLOGY> NORMAL PLT MORPH; ANISOCYTOSIS 1+; BAND#(MANUAL) 0.28 x10^3/uL; BANDS%(MANUAL) 2 % (0-7); LYMPH#(MANUAL) 0.69 x10^3/uL (1-3.4); LYMPHS% (MANUAL) 5 % (22-44); METAMYELOCYTES# (MANUAL) 0.14 x10^3/uL (0-0); METAMYELOCYTES% (MANUAL) 1 % (0-1); MONOS#(MANUAL) 0.97 x10^3/uL (0.3-2.7); MONOS% (MANUAL) 7 % (2-9); MYELOCYTES# (MANUAL) 0.14 x10^3/uL (0-0); MYELOCYTES% (MANUAL) 1 % (0-0); POLYCHROMASIA 1+; SEG#(MANUAL) 11.59 x10^3/uL (1.8-6.8); SEGS% (MANUAL) 84 % (42-75)
[2019-03-23] MEDS: GABAPENTIN 100 MG CAPSULE PO SCH ×3 (08:08→22:53)
[2019-03-23] MEDS: CALCIUM CARBONATE 500 MG TAB.CHEW PO PRN ×4 (08:08→20:48)
[2019-03-23] MEDS: SODIUM CHLORIDE FLUSH 10ML SYR IVF SCH ×2 (08:09→21:00)
[2019-03-23] MEDS: LACTOBACILLUS CHEW TABLET PO SCH ×3 (10:36→22:53)
[2019-03-23] MEDS: CEFTRIAXONE PMX 2GM/50ML 50 ML IV SCH (10:38)
[2019-03-23 13:30] VITALS: BP 100/67
[2019-03-23] MEDS: ENOXAPARIN 40 MG/0.4 ML SQ SCH (17:47)
[2019-03-23 19:16] VITALS: BP 108/67
[2019-03-23] MEDS: DOCUSATE 100 MG CAPSULE PO PRN (20:49)
[2019-03-24 03:00] VITALS: BP 96/59
[2019-03-24] MEDS: OXYcodone IR 5MG TABLET PO PRN ×5 (06:07→22:02)
[2019-03-24 06:22] LABS: MEAN CORPUSCULAR HEMOGLOBIN 28.7 pg (27.0-34.8); MEAN CORPUSCULAR HGB CONC 31.4 g/dL (32.4-35.8); MEAN CORPUSCULAR VOLUME 91.4 fL (80-100); MEAN PLATELET VOLUME 6.5 fL (7.4-10.4); PLATELET COUNT 632 x10^3/uL (130-400); RED BLOOD COUNT 2.86 x10^6/uL (3.82-5.3); RED CELL DISTRIBUTION WIDTH 18.4 % (9.6-15.2)
[2019-03-24 06:32] LABS: ANION GAP 4 mmol/L (5-15); CHLORIDE 103 mmol/L (98-107); CREATININE 0.51 mg/dL (0.55-1.02)
[2019-03-24 06:42] LABS: MD YES
[2019-03-24 06:44] LABS: ANISOCYTOSIS 1+; BAND#(MANUAL) 0.31 x10^3/uL; BANDS%(MANUAL) 2 % (0-7); EOS#(MANUAL) 0.31 x10^3/uL (0.0-0.4); EOS% (MANUAL) 2 % (1-7); LYMPH#(MANUAL) 0.15 x10^3/uL (1-3.4); LYMPHS% (MANUAL) 1 % (22-44); METAMYELOCYTES# (MANUAL) 0.77 x10^3/uL (0-0); METAMYELOCYTES% (MANUAL) 5 % (0-1); MONOS#(MANUAL) 1.38 x10^3/uL (0.3-2.7); MONOS% (MANUAL) 9 % (2-9); MYELOCYTES# (MANUAL) 0.31 x10^3/uL (0-0); MYELOCYTES% (MANUAL) 2 % (0-0); NRBC % (MANUAL) 1 % (0-1); SEG#(MANUAL) 12.09 x10^3/uL (1.8-6.8); SEGS% (MANUAL) 79 % (42-75)
[2019-03-24 06:45] LABS: <PLATELET ESTIMATE> INCREASED; <PLT MORPHOLOGY> NORMAL PLT MORPH
[2019-03-24 06:48] LABS: MICROCYTOSIS 1+
[2019-03-24 06:50] VITALS: BP 101/62
[2019-03-24 06:50] LABS: HYPOCHROMIA 1+
[2019-03-24] MEDS: GABAPENTIN 100 MG CAPSULE PO SCH ×3 (08:50→22:02)
[2019-03-24] MEDS: CALCIUM CARBONATE 500 MG TAB.CHEW PO PRN ×3 (08:50→17:06)
[2019-03-24] MEDS: LACTOBACILLUS CHEW TABLET PO SCH ×3 (08:50→22:02)
[2019-03-24] MEDS: POLYETHYLENE GLYCOL 17 GM PACKET PO SCH (08:51)
[2019-03-24] MEDS: SODIUM CHLORIDE FLUSH 10ML SYR IVF SCH ×2 (08:54→22:05)
[2019-03-24] MEDS ORDERED: BISACODYL 10 MG SUPP PR ONE (09:00)
[2019-03-24] MEDS ORDERED: POLYETHYLENE GLYCOL 17 GM PACKET NG SCH (09:00)
[2019-03-24] MEDS: CEFTRIAXONE PMX 2GM/50ML 50 ML IV SCH (10:04)
[2019-03-24 13:31] VITALS: BP 106/64
[2019-03-24] MEDS: ENOXAPARIN 40 MG/0.4 ML SQ SCH (17:06)
[2019-03-24 19:41] VITALS: BP 97/65
[2019-03-25 05:20] VITALS: BP 112/66
[2019-03-25] MEDS: OXYcodone IR 5MG TABLET PO PRN ×5 (05:42→22:07)
[2019-03-25 06:16] LABS: MEAN CORPUSCULAR HEMOGLOBIN 28.2 pg (27.0-34.8); MEAN CORPUSCULAR HGB CONC 30.9 g/dL (32.4-35.8); MEAN CORPUSCULAR VOLUME 91.3 fL (80-100); MEAN PLATELET VOLUME 6.5 fL (7.4-10.4); PLATELET COUNT 629 x10^3/uL (130-400); RED BLOOD COUNT 2.76 x10^6/uL (3.82-5.3); RED CELL DISTRIBUTION WIDTH 18.8 % (9.6-15.2)
[2019-03-25 06:28] LABS: ANION GAP 4 mmol/L (5-15); CALCIUM 8.3 mg/dL (8.5-10.1); CHLORIDE 102 mmol/L (98-107); CREATININE 0.45 mg/dL (0.55-1.02)
[2019-03-25 06:44] LABS: MD YES
[2019-03-25 06:48] LABS: BAND#(MANUAL) 0.14 x10^3/uL; BANDS%(MANUAL) 1 % (0-7); EOS#(MANUAL) 0.28 x10^3/uL (0.0-0.4); EOS% (MANUAL) 2 % (1-7); LYMPH#(MANUAL) 0.42 x10^3/uL (1-3.4); LYMPHS% (MANUAL) 3 % (22-44); METAMYELOCYTES# (MANUAL) 0.28 x10^3/uL (0-0); METAMYELOCYTES% (MANUAL) 2 % (0-1); MONOS#(MANUAL) 0.98 x10^3/uL (0.3-2.7); MONOS% (MANUAL) 7 % (2-9); MYELOCYTES% (MANUAL) 5 % (0-0); SEGS% (MANUAL) 80 % (42-75)
[2019-03-25 06:49] LABS: ANISOCYTOSIS 1+; POLYCHROMASIA 1+
[2019-03-25 06:52] LABS: <PLATELET ESTIMATE> INCREASED; <PLT MORPHOLOGY> NORMAL PLT MORPH
[2019-03-25 08:03] VITALS: BP 103/66
[2019-03-25] MEDS: GABAPENTIN 100 MG CAPSULE PO SCH ×3 (08:17→21:07)
[2019-03-25] MEDS: LACTOBACILLUS CHEW TABLET PO SCH ×3 (08:18→21:07)
[2019-03-25] MEDS: ACETAMINOPHEN 325 MG TABLET PO PRN (08:27)
[2019-03-25] MEDS: SODIUM CHLORIDE FLUSH 10ML SYR IVF SCH ×2 (08:27→21:07)
[2019-03-25] MEDS: POLYETHYLENE GLYCOL 17 GM PACKET PO SCH (08:27)
[2019-03-25] MEDS: CALCIUM CARBONATE 500 MG TAB.CHEW PO PRN ×2 (09:23→14:59)
[2019-03-25] MEDS: CEFTRIAXONE PMX 2GM/50ML 50 ML IV SCH (10:08)
[2019-03-25 14:11] VITALS: BP 116/72
[2019-03-25 14:16] VITALS: BP 102/65
[2019-03-25] MEDS: FAMOTIDINE 20 MG TABLET PO SCH ×2 (14:59→21:07)
[2019-03-25] MEDS: ENOXAPARIN 40 MG/0.4 ML SQ SCH (15:44)
[2019-03-25 20:38] VITALS: BP 98/67
[2019-03-26 02:52] VITALS: BP 103/69
[2019-03-26] MEDS: OXYcodone IR 5MG TABLET PO PRN ×6 (05:11→20:58)
[2019-03-26 05:52] LABS: MEAN CORPUSCULAR HEMOGLOBIN 28.5 pg (27.0-34.8); MEAN CORPUSCULAR HGB CONC 31.4 g/dL (32.4-35.8); MEAN CORPUSCULAR VOLUME 90.5 fL (80-100); MEAN PLATELET VOLUME 6.4 fL (7.4-10.4); PLATELET COUNT 609 x10^3/uL (130-400); RED BLOOD COUNT 2.81 x10^6/uL (3.82-5.3); RED CELL DISTRIBUTION WIDTH 18.7 % (9.6-15.2)
[2019-03-26 06:03] LABS: ANION GAP 5 mmol/L (5-15); CALCIUM 8.3 mg/dL (8.5-10.1); CHLORIDE 99 mmol/L (98-107)
[2019-03-26 06:05] LABS: CREATININE 0.48 mg/dL (0.55-1.02)
[2019-03-26 06:16] LABS: MD YES
[2019-03-26 06:17] LABS: LYMPH#(MANUAL) 0.43 x10^3/uL (1-3.4); LYMPHS% (MANUAL) 3 % (22-44); METAMYELOCYTES# (MANUAL) 0.29 x10^3/uL (0-0); METAMYELOCYTES% (MANUAL) 2 % (0-1); MONOS#(MANUAL) 1.01 x10^3/uL (0.3-2.7); MONOS% (MANUAL) 7 % (2-9); MYELOCYTES# (MANUAL) 0.43 x10^3/uL (0-0); MYELOCYTES% (MANUAL) 3 % (0-0); NRBC % (MANUAL) 1 % (0-1); SEG#(MANUAL) 12.24 x10^3/uL (1.8-6.8); SEGS% (MANUAL) 85 % (42-75)
[2019-03-26 06:18] LABS: <PLATELET ESTIMATE> INCREASED; <PLT MORPHOLOGY> NORMAL PLT MORPH; ANISOCYTOSIS 1+; POLYCHROMASIA 1+
[2019-03-26 07:19] VITALS: BP 110/66
[2019-03-26] MEDS: POLYETHYLENE GLYCOL 17 GM PACKET PO SCH (08:23)
[2019-03-26] MEDS: SODIUM CHLORIDE FLUSH 10ML SYR IVF SCH ×2 (08:23→20:58)
[2019-03-26] MEDS: LACTOBACILLUS CHEW TABLET PO SCH ×3 (08:23→20:58)
[2019-03-26] MEDS: FAMOTIDINE 20 MG TABLET PO SCH ×2 (08:23→20:58)
[2019-03-26] MEDS: GABAPENTIN 100 MG CAPSULE PO SCH ×3 (08:23→20:58)
[2019-03-26] MEDS ORDERED: MAGNESIUM SULFATE PMX 2GM/50ML 50 ML IV ONE (09:30)
[2019-03-26] MEDS: CEFTRIAXONE PMX 2GM/50ML 50 ML IV SCH (09:58)
[2019-03-26 13:20] VITALS: BP 97/58
[2019-03-26] MEDS: ENOXAPARIN 40 MG/0.4 ML SQ SCH (16:13)
[2019-03-26] MEDS: CALCIUM CARBONATE 500 MG TAB.CHEW PO PRN (17:46)
[2019-03-27 01:12] VITALS: BP 127/72
[2019-03-27] MEDS: OXYcodone IR 5MG TABLET PO PRN ×6 (01:15→21:43)
[2019-03-27 06:20] LABS: ANION GAP 4 mmol/L (5-15); CALCIUM 8.3 mg/dL (8.5-10.1); CHLORIDE 99 mmol/L (98-107)
[2019-03-27 07:28] VITALS: BP 95/54
[2019-03-27] MEDS: POLYETHYLENE GLYCOL 17 GM PACKET PO SCH (09:00)
[2019-03-27] MEDS: GABAPENTIN 100 MG CAPSULE PO SCH ×3 (09:26→21:35)
[2019-03-27] MEDS: LACTOBACILLUS CHEW TABLET PO SCH ×3 (09:26→21:35)
[2019-03-27] MEDS: FAMOTIDINE 20 MG TABLET PO SCH ×2 (09:27→21:35)
[2019-03-27] MEDS ORDERED: MAGNESIUM SULFATE PMX 2GM/50ML 50 ML IV ONE (10:30)
[2019-03-27] MEDS: CEFTRIAXONE PMX 2GM/50ML 50 ML IV SCH (10:34)
[2019-03-27] MEDS: SODIUM CHLORIDE FLUSH 10ML SYR IVF SCH ×2 (10:38→21:35)
[2019-03-27 13:08] VITALS: BP 97/63
[2019-03-27] MEDS: ENOXAPARIN 40 MG/0.4 ML SQ SCH (16:56)
[2019-03-27 21:08] VITALS: BP 96/63
[2019-03-27] MEDS: MAGNESIUM CHLORIDE 64 MG TABLET.DR PO SCH (22:03)
[2019-03-28] MEDS: OXYcodone IR 5MG TABLET PO PRN ×6 (01:47→22:06)
[2019-03-28 03:52] VITALS: BP 103/67
[2019-03-28 05:28] LABS: MEAN CORPUSCULAR HEMOGLOBIN 28.1 pg (27.0-34.8); MEAN CORPUSCULAR HGB CONC 31.1 g/dL (32.4-35.8); MEAN CORPUSCULAR VOLUME 90.3 fL (80-100); MEAN PLATELET VOLUME 6.2 fL (7.4-10.4); PLATELET COUNT 567 x10^3/uL (130-400); RED BLOOD COUNT 2.86 x10^6/uL (3.82-5.3); RED CELL DISTRIBUTION WIDTH 18.4 % (9.6-15.2)
[2019-03-28 05:33] LABS: ANION GAP 5 mmol/L (5-15); CALCIUM 8.1 mg/dL (8.5-10.1); CHLORIDE 98 mmol/L (98-107); CREATININE 0.47 mg/dL (0.55-1.02)
[2019-03-28 06:03] LABS: MD YES
[2019-03-28 06:05] LABS: BAND#(MANUAL) 0.27 x10^3/uL; BANDS%(MANUAL) 2 % (0-7); LYMPHS% (MANUAL) 3 % (22-44); METAMYELOCYTES% (MANUAL) 6 % (0-1); MONOS% (MANUAL) 6 % (2-9); MYELOCYTES# (MANUAL) 0.27 x10^3/uL (0-0); MYELOCYTES% (MANUAL) 2 % (0-0); SEG#(MANUAL) 10.77 x10^3/uL (1.8-6.8); SEGS% (MANUAL) 81 % (42-75)
[2019-03-28 06:06] LABS: ANISOCYTOSIS 1+; POLYCHROMASIA 1+
[2019-03-28 06:07] LABS: <PLATELET ESTIMATE> INCREASED; <PLT MORPHOLOGY> NORMAL PLT MORPH
[2019-03-28 08:24] VITALS: BP 100/53
[2019-03-28] MEDS: POLYETHYLENE GLYCOL 17 GM PACKET PO SCH (09:00)
[2019-03-28] MEDS: SODIUM CHLORIDE FLUSH 10ML SYR IVF SCH ×2 (09:00→22:07)
[2019-03-28] MEDS: CEFTRIAXONE PMX 2GM/50ML 50 ML IV SCH (09:40)
[2019-03-28] MEDS: GABAPENTIN 100 MG CAPSULE PO SCH ×3 (09:40→22:06)
[2019-03-28] MEDS: LACTOBACILLUS CHEW TABLET PO SCH ×3 (09:40→22:06)
[2019-03-28] MEDS: MAGNESIUM CHLORIDE 64 MG TABLET.DR PO SCH ×2 (09:40→22:06)
[2019-03-28] MEDS: FAMOTIDINE 20 MG TABLET PO SCH ×2 (09:40→22:06)
[2019-03-28 13:23] VITALS: BP 100/62
[2019-03-28] MEDS: ENOXAPARIN 40 MG/0.4 ML SQ SCH (17:05)
[2019-03-28 19:45] VITALS: BP 112/69
[2019-03-29 00:29] VITALS: BP 103/66
[2019-03-29] MEDS: OXYcodone IR 5MG TABLET PO PRN ×5 (02:43→20:44)
[2019-03-29 08:02] VITALS: BP 110/67
[2019-03-29] MEDS: MAGNESIUM CHLORIDE 64 MG TABLET.DR PO SCH ×2 (10:13→20:43)
[2019-03-29] MEDS: LACTOBACILLUS CHEW TABLET PO SCH ×3 (10:14→20:42)
[2019-03-29] MEDS: FAMOTIDINE 20 MG TABLET PO SCH ×2 (10:14→20:43)
[2019-03-29] MEDS: GABAPENTIN 100 MG CAPSULE PO SCH ×3 (10:16→20:43)
[2019-03-29] MEDS: POLYETHYLENE GLYCOL 17 GM PACKET PO SCH (10:17)
[2019-03-29] MEDS: SODIUM CHLORIDE FLUSH 10ML SYR IVF SCH ×2 (10:17→20:42)
[2019-03-29] MEDS: CEFTRIAXONE PMX 2GM/50ML 50 ML IV SCH (10:30)
[2019-03-29 13:34] VITALS: BP 94/59
[2019-03-29] MEDS: ENOXAPARIN 40 MG/0.4 ML SQ SCH (16:06)
[2019-03-29 19:55] VITALS: BP 114/74
[2019-03-30 03:40] VITALS: BP 109/67
[2019-03-30] MEDS: OXYcodone IR 5MG TABLET PO PRN ×7 (04:07→23:19)
[2019-03-30 07:00] VITALS: BP 106/57
[2019-03-30] MEDS: FAMOTIDINE 20 MG TABLET PO SCH ×2 (08:10→19:54)
[2019-03-30] MEDS: LACTOBACILLUS CHEW TABLET PO SCH ×3 (08:10→19:54)
[2019-03-30] MEDS: MAGNESIUM CHLORIDE 64 MG TABLET.DR PO SCH ×2 (08:10→19:54)
[2019-03-30] MEDS: SODIUM CHLORIDE FLUSH 10ML SYR IVF SCH ×2 (08:10→19:54)
[2019-03-30] MEDS: POLYETHYLENE GLYCOL 17 GM PACKET PO SCH (08:10)
[2019-03-30] MEDS: GABAPENTIN 100 MG CAPSULE PO SCH ×3 (08:10→19:54)
[2019-03-30 08:17] LABS: MEAN CORPUSCULAR HEMOGLOBIN 27.6 pg (27.0-34.8); MEAN PLATELET VOLUME 6.1 fL (7.4-10.4); PLATELET COUNT 547 x10^3/uL (130-400); RED BLOOD COUNT 2.69 x10^6/uL (3.82-5.3)
[2019-03-30 08:29] LABS: ANION GAP 4 mmol/L (5-15); CALCIUM 8.2 mg/dL (8.5-10.1); CHLORIDE 98 mmol/L (98-107)
[2019-03-30 08:30] LABS: CREATININE 0.67 mg/dL (0.55-1.02)
[2019-03-30 08:38] LABS: MD YES
[2019-03-30 08:40] LABS: <PLATELET ESTIMATE> INCREASED; <PLT MORPHOLOGY> NORMAL PLT MORPH; ANISOCYTOSIS 1+; BAND#(MANUAL) 0.14 x10^3/uL; BANDS%(MANUAL) 1 % (0-7); METAMYELOCYTES# (MANUAL) 0.41 x10^3/uL (0-0); METAMYELOCYTES% (MANUAL) 3 % (0-1); MONOS#(MANUAL) 0.83 x10^3/uL (0.3-2.7); MONOS% (MANUAL) 6 % (2-9); MYELOCYTES# (MANUAL) 0.14 x10^3/uL (0-0); MYELOCYTES% (MANUAL) 1 % (0-0); POLYCHROMASIA 1+; SEG#(MANUAL) 12.28 x10^3/uL (1.8-6.8); SEGS% (MANUAL) 89 % (42-75)
[2019-03-30] MEDS ORDERED: FUROSEMIDE 20 MG/2 ML IV ONE (09:00)
[2019-03-30] MEDS: CEFTRIAXONE PMX 2GM/50ML 50 ML IV SCH (10:08)
[2019-03-30 13:17] VITALS: BP 93/55
[2019-03-30] MEDS: ENOXAPARIN 40 MG/0.4 ML SQ SCH (15:02)
[2019-03-30 19:39] VITALS: BP 100/63
[2019-03-31 02:52] VITALS: BP 107/69
[2019-03-31] MEDS: OXYcodone IR 5MG TABLET PO PRN ×4 (06:15→20:28)
[2019-03-31 06:42] LABS: BASOPHILS % (AUTO) 0 % (0-1); EOSINOPHILS # (AUTO) 0.18 x10^3/uL (0-0.4); EOSINOPHILS % (AUTO) 1 % (1-7); LYMPHOCYTES # (AUTO) 0.58 x10^3/uL (1-3.4); LYMPHOCYTES % (AUTO) 5 % (22-44); MD NO; MEAN CORPUSCULAR HEMOGLOBIN 28.2 pg (27.0-34.8); MEAN CORPUSCULAR HGB CONC 31.3 g/dL (32.4-35.8); MEAN CORPUSCULAR VOLUME 90.1 fL (80-100); MEAN PLATELET VOLUME 6.4 fL (7.4-10.4); MONOCYTES # (AUTO) 1.29 x10^3/uL (0.2-0.8); MONOCYTES % (AUTO) 10 % (2-9); NEUTROPHILS # (AUTO) 10.73 x10^3/uL (1.8-6.8); NEUTROPHILS % (AUTO) 84 % (42-75); PLATELET COUNT 557 x10^3/uL (130-400); RED BLOOD COUNT 2.74 x10^6/uL (3.82-5.3); RED CELL DISTRIBUTION WIDTH 19.4 % (9.6-15.2)
[2019-03-31 06:53] LABS: ANION GAP 5 mmol/L (5-15); CALCIUM 7.8 mg/dL (8.5-10.1); CHLORIDE 98 mmol/L (98-107); CREATININE 0.62 mg/dL (0.55-1.02)
[2019-03-31] MEDS: POLYETHYLENE GLYCOL 17 GM PACKET PO SCH (07:37)
[2019-03-31] MEDS: LACTOBACILLUS CHEW TABLET PO SCH ×3 (07:47→20:28)
[2019-03-31] MEDS: GABAPENTIN 100 MG CAPSULE PO SCH ×3 (07:47→20:29)
[2019-03-31] MEDS: MAGNESIUM CHLORIDE 64 MG TABLET.DR PO SCH ×2 (07:47→20:28)
[2019-03-31] MEDS: FAMOTIDINE 20 MG TABLET PO SCH ×2 (07:47→20:29)
[2019-03-31] MEDS: SODIUM CHLORIDE FLUSH 10ML SYR IVF SCH ×2 (07:48→20:38)
[2019-03-31 08:50] VITALS: BP 90/62
[2019-03-31] MEDS: CEFTRIAXONE PMX 2GM/50ML 50 ML IV SCH (10:26)
[2019-03-31 12:41] VITALS: BP 90/52
[2019-03-31] MEDS: ENOXAPARIN 40 MG/0.4 ML SQ SCH (15:27)
[2019-03-31 19:23] VITALS: BP 105/66
[2019-04-01] MEDS: OXYcodone IR 5MG TABLET PO PRN ×5 (00:38→18:08)
[2019-04-01 01:19] VITALS: BP 96/57
[2019-04-01 06:10] LABS: MEAN CORPUSCULAR HGB CONC 30.7 g/dL (32.4-35.8); MEAN CORPUSCULAR VOLUME 91.3 fL (80-100); MEAN PLATELET VOLUME 6.2 fL (7.4-10.4); PLATELET COUNT 549 x10^3/uL (130-400); RED BLOOD COUNT 2.83 x10^6/uL (3.82-5.3); RED CELL DISTRIBUTION WIDTH 20.1 % (9.6-15.2)
[2019-04-01 06:19] LABS: ANION GAP 6 mmol/L (5-15); CALCIUM 8.4 mg/dL (8.5-10.1); CHLORIDE 99 mmol/L (98-107); CREATININE 0.61 mg/dL (0.55-1.02)
[2019-04-01 06:27] LABS: MD YES
[2019-04-01 06:29] LABS: ANISOCYTOSIS 1+; BAND#(MANUAL) 0.14 x10^3/uL; BANDS%(MANUAL) 1 % (0-7); EOS#(MANUAL) 0.27 x10^3/uL (0.0-0.4); EOS% (MANUAL) 2 % (1-7); LYMPH#(MANUAL) 0.14 x10^3/uL (1-3.4); LYMPHS% (MANUAL) 1 % (22-44); METAMYELOCYTES# (MANUAL) 0.27 x10^3/uL (0-0); METAMYELOCYTES% (MANUAL) 2 % (0-1); MONOS#(MANUAL) 1.09 x10^3/uL (0.3-2.7); MONOS% (MANUAL) 8 % (2-9); POLYCHROMASIA 1+; SEGS% (MANUAL) 86 % (42-75)
[2019-04-01 06:30] LABS: <PLATELET ESTIMATE> INCREASED; <PLT MORPHOLOGY> NORMAL PLT MORPH
[2019-04-01 07:56] VITALS: BP 101/62
[2019-04-01] MEDS: POLYETHYLENE GLYCOL 17 GM PACKET PO SCH (09:00)
[2019-04-01] MEDS: LACTOBACILLUS CHEW TABLET PO SCH ×3 (09:14→20:38)
[2019-04-01] MEDS: FAMOTIDINE 20 MG TABLET PO SCH ×2 (09:14→20:38)
[2019-04-01] MEDS: MAGNESIUM CHLORIDE 64 MG TABLET.DR PO SCH ×2 (09:14→20:38)
[2019-04-01] MEDS: GABAPENTIN 100 MG CAPSULE PO SCH ×3 (09:14→20:38)
[2019-04-01] MEDS: SODIUM CHLORIDE FLUSH 10ML SYR IVF SCH ×2 (09:15→20:39)
[2019-04-01] MEDS: CEFTRIAXONE PMX 2GM/50ML 50 ML IV SCH (10:46)
[2019-04-01 14:30] VITALS: BP 99/67
[2019-04-01] MEDS: ENOXAPARIN 40 MG/0.4 ML SQ SCH (16:21)
[2019-04-01 18:39] VITALS: BP 94/60
[2019-04-02 02:28] VITALS: BP 102/64
[2019-04-02] MEDS: OXYcodone IR 5MG TABLET PO PRN ×5 (02:51→20:51)
[2019-04-02 07:24] VITALS: BP 96/64
[2019-04-02] MEDS: MAGNESIUM CHLORIDE 64 MG TABLET.DR PO SCH ×2 (07:29→20:50)
[2019-04-02] MEDS: GABAPENTIN 100 MG CAPSULE PO SCH ×3 (07:30→20:51)
[2019-04-02] MEDS: FAMOTIDINE 20 MG TABLET PO SCH ×2 (07:30→20:51)
[2019-04-02] MEDS: LACTOBACILLUS CHEW TABLET PO SCH ×3 (07:30→20:50)
[2019-04-02 09:07] LABS: INTERNATIONAL NORMALIZED RATIO 0.96 (0.93-1.1); PROTHROMBIN TIME 10.1 Seconds (9.6-11.5)
[2019-04-02] MEDS: POLYETHYLENE GLYCOL 17 GM PACKET PO SCH (09:52)
[2019-04-02] MEDS: SODIUM CHLORIDE FLUSH 10ML SYR IVF SCH ×2 (09:52→20:51)
[2019-04-02] MEDS: CEFTRIAXONE PMX 2GM/50ML 50 ML IV SCH (09:52)
[2019-04-02 14:48] VITALS: BP 89/57
[2019-04-02 15:27] VITALS: BP 98/68
[2019-04-02] MEDS: ENOXAPARIN 40 MG/0.4 ML SQ SCH (16:34)
[2019-04-02] MEDS ORDERED: LIDOCAINE 2%, 20ML INFIL ONE (17:00)
[2019-04-02 20:31] VITALS: BP 102/61
[2019-04-03 02:00] VITALS: BP 115/65
[2019-04-03] MEDS: OXYcodone IR 5MG TABLET PO PRN ×4 (02:18→16:15)
[2019-04-03 04:46] LABS: MEAN CORPUSCULAR HEMOGLOBIN 27.6 pg (27.0-34.8); MEAN CORPUSCULAR HGB CONC 30.5 g/dL (32.4-35.8); MEAN CORPUSCULAR VOLUME 90.3 fL (80-100); MEAN PLATELET VOLUME 6.3 fL (7.4-10.4); PLATELET COUNT 505 x10^3/uL (130-400); RED CELL DISTRIBUTION WIDTH 21.3 % (9.6-15.2)
[2019-04-03 06:03] LABS: BASOPHILS # (AUTO) 0.02 x10^3/uL (0-0.1); BASOPHILS % (AUTO) 0 % (0-1); EOSINOPHILS # (AUTO) 0.06 x10^3/uL (0-0.4); EOSINOPHILS % (AUTO) 0 % (1-7); LYMPHOCYTES # (AUTO) 0.28 x10^3/uL (1-3.4); LYMPHOCYTES % (AUTO) 2 % (22-44); MD SCAN; MONOCYTES # (AUTO) 1.37 x10^3/uL (0.2-0.8); MONOCYTES % (AUTO) 10 % (2-9); NEUTROPHILS # (AUTO) 12.79 x10^3/uL (1.8-6.8); NEUTROPHILS % (AUTO) 88 % (42-75)
[2019-04-03] MEDS ORDERED: MIDAZOLAM 1 MG/ML, 5ML ONE (08:53)
[2019-04-03] MEDS ORDERED: FENTANYL PF 100 MCG/2ML ONE (08:53)
[2019-04-03] MEDS ORDERED: NALOXONE 1 MG/ML, 2ML ONE (08:53)
[2019-04-03] MEDS ORDERED: FLUMAZENIL 0.1 MG/1 ML, 5ML ONE (08:53)
[2019-04-03 08:54] VITALS: BP 97/63
[2019-04-03] MEDS ORDERED: LIDOCAINE 1%, 20ML ONE (09:14)
[2019-04-03] MEDS: GABAPENTIN 100 MG CAPSULE PO SCH ×2 (11:10→16:15)
[2019-04-03] MEDS: CEFTRIAXONE PMX 2GM/50ML 50 ML IV SCH (11:10)
[2019-04-03] MEDS: FAMOTIDINE 20 MG TABLET PO SCH (11:10)
[2019-04-03] MEDS: LACTOBACILLUS CHEW TABLET PO SCH ×2 (11:10→16:14)
[2019-04-03] MEDS: MAGNESIUM CHLORIDE 64 MG TABLET.DR PO SCH (11:10)
[2019-04-03] MEDS: SODIUM CHLORIDE FLUSH 10ML SYR IVF SCH (11:11)
[2019-04-03] MEDS: POLYETHYLENE GLYCOL 17 GM PACKET PO SCH (11:11)
[2019-04-03 13:21] VITALS: BP 94/64
[2019-04-03] MEDS: ENOXAPARIN 40 MG/0.4 ML SQ SCH (16:14)
[2019-04-03] MEDS ORDERED: DOCU100C33 PO (16:39)
[2019-04-03] MEDS ORDERED: FAMO20TA7 PO (16:39)
[2019-04-03] MEDS ORDERED: ACET325T26 PO (16:39)
[2019-04-03] MEDS ORDERED: ACID1TAB7 PO (16:39)
[2019-04-03] MEDS ORDERED: MAGN70TA2 PO (16:39)
[2019-04-03] MEDS ORDERED: OXYC5TAB3 PO (16:39)
[2019-04-03] MEDS ORDERED: LIDO700A20 TD (16:39)
[2019-04-03] MEDS ORDERED: GABA-826 PO (16:39)
[2019-04-03] MEDS ORDERED: CALC200T24 PO (16:39)
[2019-04-03] MEDS ORDERED: POLY17PO5 PO (16:39)
== END 2019-04-03 18:40 | DRG 163 ==
LOC: ED 13:18 → EDIP 13:59 → 4NE 14:44 → CCU 03-20 10:37 → 4NE 03-23 11:32
PROVIDERS: ADMIT Internal Medicine Infectious Disease; ATTEND Internal Medicine
PROC: 0W9B3ZZ Drainage of Left Pleural Cavity, Percutaneous Approach (ICD-10-PCS; 2019-03-16)
PROC: 0W9930Z Drainage of Right Pleural Cavity with Drainage Device, Percutaneous Approach (ICD-10-PCS; 2019-03-19)
PROC: 30233N1 Transfusion of Nonautologous Red Blood Cells into Peripheral Vein, Percutaneous Approach (ICD-10-PCS; 2019-03-20)
PROC: 0BNL4ZZ Release Left Lung, Percutaneous Endoscopic Approach (ICD-10-PCS; principal; 2019-03-20 07:30)
PROC: 0W9930Z Drainage of Right Pleural Cavity with Drainage Device, Percutaneous Approach (ICD-10-PCS; 2019-04-03)
DX: J86.9 Pyothorax without fistula (principal); J81.0 Acute pulmonary edema; J96.01 Acute respiratory failure with hypoxia; J18.9 Pneumonia, unspecified organism; J90 Pleural effusion, not elsewhere classified; J81.1 Chronic pulmonary edema; E87.1 Hypo-osmolality and hyponatremia; C56.9 Malignant neoplasm of unspecified ovary; E46 Unspecified protein-calorie malnutrition; E87.0 Hyperosmolality and hypernatremia; J91.8 Pleural effusion in other conditions classified elsewhere; J94.8 Other specified pleural conditions; B95.5 Unspecified streptococcus as the cause of diseases classified elsewhere; I10 Essential (primary) hypertension; J98.4 Other disorders of lung; Z88.0 Allergy status to penicillin; Z68.25 Body mass index [BMI] 25.0-25.9, adult; D63.8 Anemia in other chronic diseases classified elsewhere; G89.3 Neoplasm related pain (acute) (chronic); I89.0 Lymphedema, not elsewhere classified; K59.00 Constipation, unspecified; Z51.5 Encounter for palliative care; Z79.01 Long term (current) use of anticoagulants; Z80.1 Family history of malignant neoplasm of trachea, bronchus and lung; Z82.49 Family history of ischemic heart disease and other diseases of the circulatory system; Z86.711 Personal history of pulmonary embolism; Z86.718 Personal history of other venous thrombosis and embolism; Z90.710 Acquired absence of both cervix and uterus
CPT/HCPCS: 32550; 32551; 32555; 32557; 36415; 36600; 71045; 71275; 76937; 80048; 80053; 82330; 82803; 83605; 83615; 83735; 83880; 84100; 84145; 84157; 84484; 85025; 85379; 85610; 85651; 85730; 86140; 86738; 86850; 86900; 86923; 87040; 87070; 87075; 87081; 87205; 87449; 88112; 88305; 93005; 99156; 99157; 99285; C1729; G0378; J0171; J0696; J1100; J1650; J2185; J2250; J2405; J2704; J3010; J3480; Q9967; C1769; J0330; J1940; J2270; J2310; J3475; J7030; P9040